=== PATIENT | female | born 1940 | race Caucasian/White ===

== ENCOUNTER → 2017-09-30 | Outpatient (CLI) | payer OTHER ==
[~2017-09-30] MED LIST: ACCUPRIL40 MG PO; ADULT LOW DOSE81 MG PO; ALLEGRA ALLERG180 MG PO; ALLEGRA30 MG PO; ASPIRIN EC81 M1 PO; CALCIUM ASCORB500 MG PO; CALCIUM OYSTER500 MG; FOLIC ACID 40400 MCG PO; GENTEAL GEL DRO15 ML OPHTHALMIC; GENTEAL PM OIN3.5 GM; GLUCOPHAGE XR500 MG PO; GLUCOPHAGE500 MG PO; HYDROCHLOROTHIA25 M1; IMDUR 30 MG TAB30 M1 PO; IMURAN 50MG TAB50 M1 PO; ISOSORBIDE DINI30 MG PO; ISOSORBIDE DINIT5 MG PO; Isosorbide Dinitrate PO; LASIX 40 MG TAB40 M1 PO; LOPRESSOR HCT1 EACH PO; MAGNESIUM250 M1 PO; MIRALAX255 GM PO; NITROGLYCERIN0.4 MG SL; NORCO 7.5-3251 EACH PO; NORVASC10 MG PO; ONDANSETRON HCL4 M2 PO; OPTIVE EYE DROP30 ML; OPTIVE EYE DROP30 ML OPHTHALMIC; PREDNISONE 20 M20 M1; PRILOSEC 20 MG20 MG PO; RANEXA1000 MG PO; RANEXA500 MG PO; RANOLAZINE 500 MG PO; REMICADE 1100 MG/VIA IV; STOOL SOFTENER50 MG; SYNTHROID100 MCG PO; THERA-M CAPLET1 EACH PO; TOPROL XL100 MG PO; ZOFRAN ODT4 MG PO
[2017-09-30 10:37] LABS: CALCIUM 9.4 mg/dL (8.5-10.1); CREATININE 1.5 mg/dL (0.6-1.3); POTASSIUM 4.6 mmol/L (3.5-5.1)
== END ==
LOC: M.LAB 10:17
PROVIDERS: Internal Medicine
DX: E87.6 Hypokalemia (principal); I10 Essential (primary) hypertension; I25.10 Atherosclerotic heart disease of native coronary artery without angina pectoris

== ENCOUNTER → 2021-02-21 | Outpatient (CLI) | payer OTHER | LOC: M.RAD 16:02 | PROVIDERS: ATTEND Internal Medicine | DX: R07.89 Other chest pain (principal); S20.20XA Contusion of thorax, unspecified, initial encounter; T07.XXXA Unspecified multiple injuries, initial encounter; X58.XXXA Exposure to other specified factors, initial encounter; Y93.89 Activity, other specified; Y92.89 Other specified places as the place of occurrence of the external cause; Y99.8 Other external cause status ==

== ENCOUNTER → 2021-08-21 | Outpatient (CLI) | payer OTHER | LOC: M.ULTRA 12:35 | PROVIDERS: ATTEND Internal Medicine | DX: M71.22 Synovial cyst of popliteal space [Baker], left knee (principal); M79.89 Other specified soft tissue disorders ==